=== PATIENT | female | born 1965 | race Caucasian/White ===

== ENCOUNTER 2016-08-21 10:32 | Emergency (ER) | payer SELFPAY ==
[~2016-08-21 10:32] MED LIST: DCN100 PO
== END 2016-08-21 12:39 | disposition home or self-care (01) ==
LOC: ER 10:32
DX: G43.909 Migraine, unspecified, not intractable, without status migrainosus (principal); J32.9 Chronic sinusitis, unspecified; Z88.5 Allergy status to narcotic agent; Z88.8 Allergy status to other drugs, medicaments and biological substances; Z79.899 Other long term (current) drug therapy
CPT/HCPCS: 96374; 96375; 99283; J1200; J2765; J2930